=== PATIENT | female | born 1990 | race Two or more races ===

== ENCOUNTER 2016-12-09 04:42 | Emergency (ER) | payer OTHER ==
[2016-12-09] MEDS ORDERED: ALBUTEROL/IPRATROPIUM 2.5/0.5 MG 3 ML/EACH DOSE ONE ×2 (05:12→06:18)
[2016-12-09] MEDS ORDERED: PREDNISONE 20 MG TABLET ONE (05:50)
== END 2016-12-09 07:33 | disposition home or self-care (01) ==
LOC: ED 04:42
DX: J45.901 Unspecified asthma with (acute) exacerbation (principal); K21.9 Gastro-esophageal reflux disease without esophagitis
CPT/HCPCS: 94640; 99283 ×2; J7512